=== PATIENT | female | born 1930 | race Caucasian/White ===

== ENCOUNTER → 2017-03-20 | Outpatient (CLI) | payer MEDICARE, BC | END | disposition home or self-care (01) | LOC: MAMMO 11:21 | PROVIDERS: ATTEND Specialist | DX: Z12.31 Encounter for screening mammogram for malignant neoplasm of breast (principal) | CPT/HCPCS: G0202 ==

== ENCOUNTER → 2019-11-20 | Outpatient (CLI) | payer MEDICARE, BC | END | disposition home or self-care (01) | LOC: RAD 12:49 | PROVIDERS: ATTEND Specialist | DX: J98.11 Atelectasis (principal); I51.7 Cardiomegaly; M85.88 Other specified disorders of bone density and structure, other site | CPT/HCPCS: 71046 ==

== ENCOUNTER 2019-11-28 11:29 | Inpatient (IN) | payer MEDICARE, BC ==
[~2019-11-28] VITALS: Ht 162.6 cm; Wt 51.7 kg
[2019-11-28] MEDS ORDERED: SODIUM CHLORIDE 0.9% 1,000 ML IV ONE (11:44)
[2019-11-28 12:25] LABS: BASOPHILS % 0.5 % (0.0-2.0); HEMATOCRIT. 40.7 % (36.0-48.0); HEMOGLOBIN. 13.9 g/dL (12.0-16.0); LYMPHOCYTES % 7.9 % (20.0-50.0); MEAN CORPUSCULAR HEMOGLOBIN 30.4 pg (28.0-32.0); MEAN CORPUSCULAR VOLUME 88.7 fL (81.0-99.0); MEAN PLATELET VOLUME 8.9 fl (7.4-10.4); MONOCYTES % 8.3 % (2.0-8.0); NEUTROPHILS % 83.3 % (40.0-76.0); PLATELET 131 x1000/uL (130-400); RED BLOOD CELL COUNT 4.59 mill/uL (4.2-5.4); RED CELL DISTRIBUTION WIDTH 15.5 % (11.6-14.6)
[2019-11-28 12:31] LABS: CHLORIDE 98 mEq/L (98-107)
[2019-11-28] MEDS ORDERED: ONDANSETRON HCL 4MG/2ML INJ IV STA (12:56)
[2019-11-28] MEDS ORDERED: MORPHINE SULFATE 4 MG/ML CPJ (NOT FOR IM USE) IV STA (12:56)
[2019-11-28] MEDS ORDERED: GUAIFENESIN/CODEINE 100-10MG/5ML UDC PO ONE (13:00)
[2019-11-28] MEDS: SODIUM CHLORIDE 0.9% 1,000 ML IV SCH (16:02)
[2019-11-28] MEDS ORDERED: DOCUSATE SODIUM 100MG CAPSULE PO PRN (16:15)
[2019-11-28] MEDS ORDERED: GUAIFENESIN 200MG/10ML SUGAR FREE UDC PO PRN (16:15)
[2019-11-28] MEDS ORDERED: CLONIDINE 0.1MG TABLET PO PRN (16:15)
[2019-11-28] MEDS ORDERED: ACETAMINOPHEN 650MG SUPP PR PRN (16:15)
[2019-11-28] MEDS ORDERED: IPRATROPIUM/ALBUTEROL 0.5-3(2.5)MG/3ML NEB HHN PRN (16:15)
[2019-11-28] MEDS ORDERED: MAGNESIUM/ALUMINUM HYDROXIDE/SIMETHICONE 30ML UDC PO PRN (16:15)
[2019-11-28] MEDS ORDERED: DIPHENHYDRAMINE 50MG/ML VIAL IV PRN (16:15)
[2019-11-28] MEDS ORDERED: ONDANSETRON HCL 4MG/2ML INJ IV PRN (16:15)
[2019-11-28] MEDS ORDERED: MORPHINE SULFATE 2 MG/ML CPJ (NOT FOR IM USE) IV PRN (17:54)
[2019-11-28] MEDS ORDERED: ETOMIDATE 2MG/ML 10ML VIAL IV ONE (19:57)
[2019-11-28] MEDS ORDERED: SUCCINYLCHOLINE CHLORIDE 200MG/10ML IV ONE (19:57)
[2019-11-28] MEDS ORDERED: LORAZEPAM 2MG/ML CPJ IV ONE ×2 (20:00→21:30)
[2019-11-28] MEDS ORDERED: FENTANYL CITRATE/PF 500 MCG in SODIUM CHLORIDE 0.9% 40 ML IV PRN ×2 (20:00→20:30)
[2019-11-28] MEDS ORDERED: MIDAZOLAM HCL 50 MG in DEXTROSE 5% WATER 40 ML IV ONE ×2 (20:00→20:15)
[2019-11-28 21:07] LABS: BG BASE EXCESS 1.1 mmol/L (-2.0-2.0); BG CARBOXYHEMOGLOBIN 0.3 % (0.5-1.5); BG DEOXYHEMOGLOBIN 2.8 % (0.0-5.0); BG FRACTION INSPIRED OXYGEN 40; BG HCO3 ACT 22.5 mmol/L (22.0-26.0); BG METHEMOGLOBIN 0.3 % (0.0-1.5); BG OXYGEN SATURATION 97.2 % (92.0-98.5); BG OXYHEMOGLOBIN 96.6 % (94.0-97.0); BG PCO2 26.5 mmHg (35.0-45.0); BG PH 7.546 (7.350-7.450); BG SAMPLE SITE RIGHT RADIAL; BG TIDAL VOLUME(mL) 500 mL; BG TOTAL HEMOGLOBIN 12.4 g/dL (12.0-18.0); BG VENT MODE VENT - A/C; BG VENT RATE 14 set
[2019-11-28 22:51] VITALS: BP 155/70
[2019-11-28 23:00] VITALS: BP 139/44
[2019-11-28 23:15] VITALS: BP 140/72
[2019-11-28 23:30] VITALS: BP 129/70
[2019-11-28] MEDS ORDERED: NICARDIPINE 50 MG in SODIUM CHLORIDE 0.9% 230 ML IV PRN (23:30)
[2019-11-28 23:45] VITALS: BP 131/66
[2019-11-29] VITALS (95 sets, daily range): BP systolic 97–167; BP diastolic 49–82
[2019-11-29 01:21] LABS: CLARITY URINE CLEAR (CLEAR); COLOR URINE YELLOW (YELLOW); KETONES URINE TRACE (NEGATIVE); LEUKOCYTE ESTERASE URINE NEGATIVE (NEGATIVE); NITRITE URINE NEGATIVE (NEGATIVE); OCCULT BLOOD URINE NEGATIVE (NEGATIVE); PROTEIN URINE NEGATIVE (NEGATIVE); SPECIFIC GRAVITY URINE 1.009 (1.005-1.030); UROBILINOGEN URINE 0.2 E.U./dL (0.2-1.0)
[2019-11-29] MEDS ORDERED: FENTANYL CITRATE/PF 500 MCG in SODIUM CHLORIDE 0.9% 40 ML IV PRN (01:30)
[2019-11-29] MEDS: ENALAPRIL 1.25MG/ML VIAL 1ML IV PRN (02:41)
[2019-11-29] MEDS: MORPHINE SULFATE 2 MG/ML CPJ (NOT FOR IM USE) IV PRN (03:12)
[2019-11-29 05:50] LABS: HEMATOCRIT. 38.4 % (36.0-48.0); HEMOGLOBIN. 12.8 g/dL (12.0-16.0); MEAN CORPUSCULAR HEMOGLOBIN 30.2 pg (28.0-32.0); MEAN CORPUSCULAR VOLUME 90.7 fL (81.0-99.0); MEAN PLATELET VOLUME 9.1 fl (7.4-10.4); PLATELET 114 x1000/uL (130-400); RED BLOOD CELL COUNT 4.23 mill/uL (4.2-5.4); RED CELL DISTRIBUTION WIDTH 15.8 % (11.6-14.6)
[2019-11-29 05:55] LABS: CHLORIDE 106 mEq/L (98-107)
[2019-11-29 06:09] LABS: LDL CHOLESTEROL 81 mg/dL (5-100)
[2019-11-29 06:10] LABS: CREATINE KINASE 190 IU/L (26-192); HDL CHOLESTEROL 62 mg/dL (40-59)
[2019-11-29 06:13] LABS: T4 FREE 1.49 ng/dL (0.76-1.46)
[2019-11-29] MEDS: SODIUM CHLORIDE 0.9% 1,000 ML IV SCH (09:30)
[2019-11-29] MEDS: TRAMADOL 50MG TABLET PO PRN ×2 (10:13→17:48)
[2019-11-29] MEDS: AMLODIPINE 5MG TABLET PO SCH (10:13)
[2019-11-29] MEDS: PANTOPRAZOLE SODIUM 40 MG/VIAL IV SCH (10:14)
[2019-11-29 10:40] LABS: PLATELET ESTIMATE DECREASED
[2019-11-29] MEDS ORDERED: PROPOFOL 10MG/ML 100ML 100 ML IV PRN ×2 (13:45)
[2019-11-29] MEDS ORDERED: PIPERACILLIN/TAZOBACTAM 3.375 G in DEXT 5% WATER 100 ML IV SCH (13:45)
[2019-11-29] MEDS ORDERED: IPRATROPIUM/ALBUTEROL 0.5-3(2.5)MG/3ML NEB HHN PRN (13:45)
[2019-11-29 15:47] LABS: INR 1.7
[2019-11-29] MEDS: PIPERACILLIN/TAZOBACTAM 2.25 G in DEXTROSE 5% WATER 50 ML IV SCH ×3 (16:17→23:56)
[2019-11-29] MEDS: ACETAMINOPHEN 325MG TABLET PO PRN (17:48)
[2019-11-29] MEDS: IPRATROPIUM/ALBUTEROL 0.5-3(2.5)MG/3ML NEB HHN SCH (20:43)
[2019-11-30] VITALS (100 sets, daily range): BP systolic 102–167; BP diastolic 50–92
[2019-11-30] MEDS: TRAMADOL 50MG TABLET PO PRN (00:10)
[2019-11-30] MEDS: IPRATROPIUM/ALBUTEROL 0.5-3(2.5)MG/3ML NEB HHN SCH ×4 (01:18→20:47)
[2019-11-30] MEDS ORDERED: ZOLP10TA6 PO (03:10)
[2019-11-30] MEDS ORDERED: LOSA50TA41 PO (03:10)
[2019-11-30] MEDS ORDERED: TRAM50TA3 PO (03:10)
[2019-11-30] MEDS ORDERED: AMLO5TAB88 PO (03:10)
[2019-11-30] MEDS ORDERED: CETI10TA6 PO (03:10)
[2019-11-30] MEDS ORDERED: ATOR40TA70 MT (03:10)
[2019-11-30] MEDS: ENALAPRIL 1.25MG/ML VIAL 1ML IV PRN ×2 (03:19→18:22)
[2019-11-30] MEDS: SODIUM CHLORIDE 0.9% 1,000 ML IV SCH ×2 (03:30→19:00)
[2019-11-30 05:31] LABS: BASOPHILS % 0.3 % (0.0-2.0); EOSINOPHILS % 0.3 % (0.0-5.0); HEMOGLOBIN. 12.7 g/dL (12.0-16.0); LYMPHOCYTES % 21.1 % (20.0-50.0); MEAN CORPUSCULAR VOLUME 89.8 fL (81.0-99.0); MEAN PLATELET VOLUME 8.9 fl (7.4-10.4); NEUTROPHILS % 67.3 % (40.0-76.0); PLATELET 104 x1000/uL (130-400); RED BLOOD CELL COUNT 4.24 mill/uL (4.2-5.4); RED CELL DISTRIBUTION WIDTH 15.8 % (11.6-14.6)
[2019-11-30 05:51] LABS: CHLORIDE 105 mEq/L (98-107)
[2019-11-30] MEDS: MORPHINE SULFATE 2 MG/ML CPJ (NOT FOR IM USE) IV PRN ×2 (05:51→19:56)
[2019-11-30] MEDS: PIPERACILLIN/TAZOBACTAM 2.25 G in DEXTROSE 5% WATER 50 ML IV SCH ×2 (06:18→12:37)
[2019-11-30] MEDS: AMLODIPINE 5MG TABLET PO SCH (07:58)
[2019-11-30] MEDS: PANTOPRAZOLE SODIUM 40 MG/VIAL IV SCH (07:58)
[2019-11-30] MEDS ORDERED: GADOBENATE DIMEGLUMINE 529 MG/ML 10ML IV ONE (10:28)
[2019-11-30] MEDS ORDERED: KCL 10MEQ/50ML PREMIX 50 ML IV NR (12:30)
[2019-11-30] MEDS ORDERED: POTASSIUM CHLORIDE INJ 40 MEQ in DEXT 5% WATER 250 ML IV NR (13:00)
[2019-11-30] MEDS ORDERED: FUROSEMIDE 20MG/2ML VIAL IVP SCH (14:45)
[2019-11-30] MEDS ORDERED: ACETAMINOPHEN 650MG/20.3ML UDC NG PRN (15:15)
[2019-11-30 17:17] LABS: HEPATITIS B SURFACE ANTIGEN NEGATIVE
[2019-11-30] MEDS: PHYTONADIONE 10MG/ML AMP SUBCUT SCH (17:26)
[2019-11-30] MEDS: CEFTRIAXONE 1 G PREMIX 50 ML IV SCH (17:26)
[2019-11-30 17:47] LABS: HEPATITIS A AB IGM NEGATIVE (NEGATIVE)
[2019-11-30] MEDS ORDERED: NICARDIPINE 100 MG in SODIUM CHLORIDE 0.9% 60 ML IV PRN (20:30)
[2019-11-30] MEDS ORDERED: FUROSEMIDE 20MG/2ML VIAL IVP NR (23:45)
[2019-12-01] VITALS (72 sets, daily range): BP systolic 94–152; BP diastolic 32–72
[2019-12-01] MEDS: PROPOFOL 10MG/ML 100ML 100 ML IV PRN ×2 (00:50→13:40)
[2019-12-01] MEDS: IPRATROPIUM/ALBUTEROL 0.5-3(2.5)MG/3ML NEB HHN SCH ×4 (01:27→20:58)
[2019-12-01 05:43] LABS: BASOPHILS % 0.3 % (0.0-2.0); EOSINOPHILS % 0.6 % (0.0-5.0); HEMOGLOBIN. 10.8 g/dL (12.0-16.0); LYMPHOCYTES % 16.2 % (20.0-50.0); MEAN CORPUSCULAR HEMOGLOBIN 30.4 pg (28.0-32.0); MEAN PLATELET VOLUME 8.4 fl (7.4-10.4); NEUTROPHILS % 71.9 % (40.0-76.0); PLATELET 173 x1000/uL (130-400); RED BLOOD CELL COUNT 3.56 mill/uL (4.2-5.4); RED CELL DISTRIBUTION WIDTH 15.6 % (11.6-14.6)
[2019-12-01 05:47] LABS: PARTIAL THROMBOPLASTIN TIME 30.7 sec (23.4-31.0); PROTHROMBIN TIME 10.9 sec (9.6-11.0)
[2019-12-01 05:49] LABS: CHLORIDE 104 mEq/L (98-107)
[2019-12-01] MEDS ORDERED: LIDOCAINE HCL 1% 20ML VIAL (Pyxis) INJ ONE (07:08)
[2019-12-01] MEDS ORDERED: POTASSIUM CHLORIDE INJ 40 MEQ in DEXT 5% WATER 250 ML IV NR (08:00)
[2019-12-01] MEDS: AMLODIPINE 5MG TABLET PO SCH (08:07)
[2019-12-01] MEDS: PANTOPRAZOLE SODIUM 40 MG/VIAL IV SCH (08:18)
[2019-12-01] MEDS: PHYTONADIONE 10MG/ML AMP SUBCUT SCH (08:18)
[2019-12-01] MEDS: MORPHINE SULFATE 2 MG/ML CPJ (NOT FOR IM USE) IV PRN ×2 (08:50→13:30)
[2019-12-01] MEDS ORDERED: THROMBIN (BOVINE) 5000 UNITS/VIAL TOP ONE (08:51)
[2019-12-01] MEDS ORDERED: LIDOCAINE HCL/EPINEPHRINE 1%-EPI 1:100,000 20 ML VIAL ONE (08:52)
[2019-12-01] MEDS ORDERED: BACITRACIN 50,000 UNITS/VIAL ONE (08:52)
[2019-12-01] MEDS ORDERED: KCL 20MEQ/100ML PREMIX 100 ML IV NR ×3 (11:00→23:00)
[2019-12-01] MEDS ORDERED: FENTANYL CITRATE/PF 50MCG/ML 2ML VIAL ONE (11:33)
[2019-12-01] MEDS ORDERED: ROCURONIUM BROMIDE 10MG/ML VIAL 5ML IV ONE (11:34)
[2019-12-01] MEDS ORDERED: BACITRACIN 15GM TUBE TOP ONE (11:48)
[2019-12-01] MEDS ORDERED: PROPOFOL 200MG/20ML VIAL IV ONE (12:13)
[2019-12-01] MEDS ORDERED: LEVETIRACETAM 500 MG in SODIUM CHLORIDE 0.9% 100 ML IV SCH (12:45)
[2019-12-01] MEDS ORDERED: LEVETIRACETAM 500MG PREMIX 100 ML IV NR (12:45)
[2019-12-01] MEDS ORDERED: NICARDIPINE 100 MG in SODIUM CHLORIDE 0.9% 60 ML IV PRN (12:45)
[2019-12-01 12:49] LABS: CHLORIDE 106 mEq/L (98-107)
[2019-12-01] MEDS: DEXT 5%/LACTATED RINGERS 1,000 ML IV SCH (13:38)
[2019-12-01] MEDS ORDERED: CEFAZOLIN SODIUM 1000MG/VIAL IV SCH (14:00)
[2019-12-01] MEDS: CEFAZOLIN 1000MG PREMIX 50 ML IV SCH ×2 (14:57→21:28)
[2019-12-01] MEDS: CEFTRIAXONE 1 G PREMIX 50 ML IV SCH (16:00)
[2019-12-01] MEDS: LEVETIRACETAM 500MG PREMIX 100 ML IV SCH (20:39)
[2019-12-01] MEDS ORDERED: MAGNESIUM 2 G PREMIX 50 ML IV NR (23:00)
[2019-12-02] VITALS (87 sets, daily range): BP systolic 40–170; BP diastolic 0–118
[2019-12-02] MEDS: IPRATROPIUM/ALBUTEROL 0.5-3(2.5)MG/3ML NEB HHN SCH ×4 (03:41→20:04)
[2019-12-02 05:08] LABS: BASOPHILS % 0.3 % (0.0-2.0); EOSINOPHILS % 0.1 % (0.0-5.0); HEMATOCRIT. 36.1 % (36.0-48.0); HEMOGLOBIN. 12.5 g/dL (12.0-16.0); LYMPHOCYTES % 14.9 % (20.0-50.0); MEAN CORPUSCULAR HEMOGLOBIN 30.3 pg (28.0-32.0); MEAN CORPUSCULAR VOLUME 87.3 fL (81.0-99.0); MEAN PLATELET VOLUME 8.6 fl (7.4-10.4); NEUTROPHILS % 73.7 % (40.0-76.0); PLATELET 190 x1000/uL (130-400); RED BLOOD CELL COUNT 4.13 mill/uL (4.2-5.4); RED CELL DISTRIBUTION WIDTH 15.7 % (11.6-14.6)
[2019-12-02 05:10] LABS: CHLORIDE 107 mEq/L (98-107)
[2019-12-02] MEDS: CEFAZOLIN 1000MG PREMIX 50 ML IV SCH ×3 (06:46→23:14)
[2019-12-02] MEDS ORDERED: PROPOFOL 10MG/ML 100ML 100 ML IV PRN (07:00)
[2019-12-02] MEDS: DEXT 5%/LACTATED RINGERS 1,000 ML IV SCH (08:00)
[2019-12-02] MEDS: LEVETIRACETAM 500MG PREMIX 100 ML IV SCH ×2 (08:48→20:50)
[2019-12-02] MEDS: AMLODIPINE 5MG TABLET PO SCH (08:49)
[2019-12-02] MEDS: PANTOPRAZOLE SODIUM 40 MG/VIAL IV SCH (08:49)
[2019-12-02] MEDS: PHYTONADIONE 10MG/ML AMP SUBCUT SCH (08:49)
[2019-12-02] MEDS ORDERED: POTASSIUM CHLORIDE 20MEQ/PACKET PO NR (10:15)
[2019-12-02 10:51] LABS: BG CARBOXYHEMOGLOBIN 0.3 % (0.5-1.5); BG DEOXYHEMOGLOBIN 1.5 % (0.0-5.0); BG FRACTION INSPIRED OXYGEN 45; BG HCO3 ACT 24.4 mmol/L (22.0-26.0); BG METHEMOGLOBIN 0.2 % (0.0-1.5); BG OXYGEN SATURATION 98.5 % (92.0-98.5); BG PCO2 31.2 mmHg (35.0-45.0); BG PH 7.511 (7.350-7.450); BG PO2 133.6 mmHg (75.0-100.0); BG PRESSURE SUPPORT 8; BG SAMPLE SITE RIGHT RADIAL; BG TOTAL HEMOGLOBIN 12.1 g/dL (12.0-18.0); BG VENT MODE VENT - CPAP
[2019-12-02] MEDS: CEFTRIAXONE 1 G PREMIX 50 ML IV SCH (16:34)
[2019-12-02] MEDS ORDERED: POTASSIUM CHLORIDE 20MEQ/PACKET NG NR (21:00)
[2019-12-03] VITALS (47 sets, daily range): BP systolic 102–174; BP diastolic 24–138
[2019-12-03] MEDS: IPRATROPIUM/ALBUTEROL 0.5-3(2.5)MG/3ML NEB HHN SCH ×4 (00:55→20:52)
[2019-12-03 05:52] LABS: BASOPHILS % 0.4 % (0.0-2.0); EOSINOPHILS % 0.6 % (0.0-5.0); HEMATOCRIT. 36.1 % (36.0-48.0); HEMOGLOBIN. 12.4 g/dL (12.0-16.0); LYMPHOCYTES % 18.1 % (20.0-50.0); MEAN CORPUSCULAR HEMOGLOBIN 29.9 pg (28.0-32.0); MEAN CORPUSCULAR VOLUME 87.1 fL (81.0-99.0); MEAN PLATELET VOLUME 8.9 fl (7.4-10.4); MONOCYTES % 11.7 % (2.0-8.0); NEUTROPHILS % 69.2 % (40.0-76.0); PLATELET 187 x1000/uL (130-400); RED BLOOD CELL COUNT 4.15 mill/uL (4.2-5.4); RED CELL DISTRIBUTION WIDTH 15.8 % (11.6-14.6)
[2019-12-03] MEDS: DEXT 5%/LACTATED RINGERS 1,000 ML IV SCH ×2 (06:17→14:36)
[2019-12-03] MEDS: MORPHINE SULFATE 4 MG/ML CPJ (NOT FOR IM USE) IV PRN ×2 (06:18→20:34)
[2019-12-03] MEDS: CEFAZOLIN 1000MG PREMIX 50 ML IV SCH ×2 (06:20→13:45)
[2019-12-03] MEDS: PANTOPRAZOLE SODIUM 40 MG/VIAL IV SCH (08:27)
[2019-12-03] MEDS: LEVETIRACETAM 500MG PREMIX 100 ML IV SCH ×2 (08:27→20:34)
[2019-12-03] MEDS: AMLODIPINE 5MG TABLET PO SCH (08:28)
[2019-12-03 08:32] LABS: CHLORIDE 107 mEq/L (98-107)
[2019-12-03] MEDS ORDERED: POTASSIUM CHLORIDE INJ 40 MEQ in DEXT 5% WATER 250 ML IV NR (11:00)
[2019-12-03] MEDS: POTASSIUM CHLORIDE 20MEQ/PACKET NG SCH ×2 (12:27→14:36)
[2019-12-03] MEDS: CEFTRIAXONE 1 G PREMIX 50 ML IV SCH (16:55)
[2019-12-04] VITALS (12 sets, daily range): BP systolic 106–158; BP diastolic 59–96
[2019-12-04] MEDS: IPRATROPIUM/ALBUTEROL 0.5-3(2.5)MG/3ML NEB HHN SCH ×4 (02:25→21:07)
[2019-12-04 06:40] LABS: BASOPHILS % 0.7 % (0.0-2.0); EOSINOPHILS % 3.2 % (0.0-5.0); HEMATOCRIT. 33.9 % (36.0-48.0); HEMOGLOBIN. 11.7 g/dL (12.0-16.0); LYMPHOCYTES % 24.7 % (20.0-50.0); MEAN CORPUSCULAR HEMOGLOBIN 30.2 pg (28.0-32.0); MEAN CORPUSCULAR VOLUME 87.8 fL (81.0-99.0); MEAN PLATELET VOLUME 8.9 fl (7.4-10.4); MONOCYTES % 14.3 % (2.0-8.0); NEUTROPHILS % 57.1 % (40.0-76.0); PLATELET 169 x1000/uL (130-400); RED BLOOD CELL COUNT 3.86 mill/uL (4.2-5.4); RED CELL DISTRIBUTION WIDTH 15.3 % (11.6-14.6)
[2019-12-04 07:08] LABS: CHLORIDE 111 mEq/L (98-107)
[2019-12-04] MEDS: PANTOPRAZOLE SODIUM 40 MG/VIAL IV SCH (08:04)
[2019-12-04] MEDS: AMLODIPINE 5MG TABLET PO SCH (08:04)
[2019-12-04] MEDS: LEVETIRACETAM 500MG PREMIX 100 ML IV SCH ×2 (08:04→20:45)
[2019-12-04] MEDS ORDERED: ENALAPRIL 1.25MG/ML VIAL 1ML IV PRN (08:45)
[2019-12-04] MEDS: MAGNESIUM OXIDE 400MG TABLET PO SCH (09:10)
[2019-12-04] MEDS ORDERED: MAGNESIUM 2 G PREMIX 50 ML IV SCH (10:00)
[2019-12-04] MEDS: POTASSIUM CHLORIDE 20MEQ/PACKET PO SCH ×2 (11:30→12:59)
[2019-12-04] MEDS: CEFTRIAXONE 1 G PREMIX 50 ML IV SCH (16:10)
[2019-12-04] MEDS: KCL 20MEQ/100ML PREMIX 100 ML IV SCH ×2 (16:49→18:58)
[2019-12-04] MEDS: MORPHINE SULFATE 4 MG/ML CPJ (NOT FOR IM USE) IV PRN (22:21)
[2019-12-05] VITALS (13 sets, daily range): BP systolic 106–143; BP diastolic 59–74
[2019-12-05] MEDS: IPRATROPIUM/ALBUTEROL 0.5-3(2.5)MG/3ML NEB HHN SCH ×4 (03:22→19:50)
[2019-12-05 07:16] LABS: BASOPHILS % 0.7 % (0.0-2.0); HEMATOCRIT. 34.7 % (36.0-48.0); HEMOGLOBIN. 11.7 g/dL (12.0-16.0); LYMPHOCYTES % 20.5 % (20.0-50.0); MEAN CORPUSCULAR HEMOGLOBIN 29.7 pg (28.0-32.0); MONOCYTES % 10.4 % (2.0-8.0); NEUTROPHILS % 67.4 % (40.0-76.0); PLATELET 159 x1000/uL (130-400); RED BLOOD CELL COUNT 3.94 mill/uL (4.2-5.4); RED CELL DISTRIBUTION WIDTH 15.2 % (11.6-14.6)
[2019-12-05 08:33] LABS: CHLORIDE 111 mEq/L (98-107)
[2019-12-05] MEDS: LEVETIRACETAM 500MG PREMIX 100 ML IV SCH ×2 (09:10→20:33)
[2019-12-05] MEDS: PANTOPRAZOLE SODIUM 40 MG/VIAL IV SCH (09:10)
[2019-12-05] MEDS: MAGNESIUM OXIDE 400MG TABLET PO SCH (09:11)
[2019-12-05] MEDS: AMLODIPINE 5MG TABLET PO SCH (09:11)
[2019-12-05] MEDS: DEXT 5%/LACTATED RINGERS 1,000 ML IV SCH (09:12)
[2019-12-05] MEDS: CEFTRIAXONE 1 G PREMIX 50 ML IV SCH (16:09)
[2019-12-05] MEDS: ACETAMINOPHEN 325MG TABLET PO PRN (16:15)
[2019-12-06] VITALS (13 sets, daily range): BP systolic 114–157; BP diastolic 50–76
[2019-12-06] MEDS: IPRATROPIUM/ALBUTEROL 0.5-3(2.5)MG/3ML NEB HHN SCH ×3 (01:38→15:17)
[2019-12-06 05:45] LABS: BASOPHILS % 0.8 % (0.0-2.0); EOSINOPHILS % 1.3 % (0.0-5.0); HEMATOCRIT. 34.3 % (36.0-48.0); HEMOGLOBIN. 11.8 g/dL (12.0-16.0); MEAN CORPUSCULAR HEMOGLOBIN 30.1 pg (28.0-32.0); MEAN CORPUSCULAR VOLUME 87.7 fL (81.0-99.0); MONOCYTES % 10.6 % (2.0-8.0); NEUTROPHILS % 70.3 % (40.0-76.0); PLATELET 189 x1000/uL (130-400); RED BLOOD CELL COUNT 3.91 mill/uL (4.2-5.4); RED CELL DISTRIBUTION WIDTH 15.6 % (11.6-14.6)
[2019-12-06 06:14] LABS: CHLORIDE 110 mEq/L (98-107)
[2019-12-06] MEDS: PANTOPRAZOLE SODIUM 40 MG/VIAL IV SCH (08:53)
[2019-12-06] MEDS: LEVETIRACETAM 500MG PREMIX 100 ML IV SCH (08:53)
[2019-12-06] MEDS: AMLODIPINE 5MG TABLET PO SCH (08:53)
[2019-12-06] MEDS: MAGNESIUM OXIDE 400MG TABLET PO SCH (08:53)
[2019-12-06] MEDS ORDERED: LOSARTAN POTASSIUM 50 MG TABLET PO SCH (12:45)
[2019-12-06] MEDS: ACETAMINOPHEN 325MG TABLET PO PRN (18:44)
[2019-12-06] MEDS ORDERED: ATORVASTATIN CALCIUM 40MG TABLET PO SCH (21:00)
[2019-12-07] MEDS ORDERED: PANTOPRAZOLE 40MG DR TABLET PO SCH (07:30)
== END 2019-12-06 20:25 | DRG 981 ==
LOC: ER 11:29 → MICUNO 14:22 → EDBEDREQTM 21:05 → EDBEDREQSVC 21:05 → 5EST 12-03 22:35
PROVIDERS: ADMIT Family Medicine Adult Medicine; ATTEND Family Medicine Adult Medicine
PROC: 5A1945Z Respiratory Ventilation, 24-96 Consecutive Hours (ICD-10-PCS; principal; 2019-11-28)
PROC: 0BH17EZ Insertion of Endotracheal Airway into Trachea, Via Natural or Artificial Opening (ICD-10-PCS; 2019-11-28)
PROC: 009400Z Drainage of Intracranial Subdural Space with Drainage Device, Open Approach (ICD-10-PCS; 2019-11-28)
PROC: 30233R1 Transfusion of Nonautologous Platelets into Peripheral Vein, Percutaneous Approach (ICD-10-PCS; 2019-11-30)
PROC: 00H032Z Insertion of Monitoring Device into Brain, Percutaneous Approach (ICD-10-PCS; 2019-12-01)
PROC: 00U207Z Supplement Dura Mater with Autologous Tissue Substitute, Open Approach (ICD-10-PCS; 2019-12-01)
PROC: 4A103BD Monitoring of Intracranial Pressure, Percutaneous Approach (ICD-10-PCS; 2019-12-01)
PROC: 02H633Z Insertion of Infusion Device into Right Atrium, Percutaneous Approach (ICD-10-PCS; 2019-12-01)
PROC: B548ZZA Ultrasonography of Superior Vena Cava, Guidance (ICD-10-PCS; 2019-12-01)
PROC: 30233K1 Transfusion of Nonautologous Frozen Plasma into Peripheral Vein, Percutaneous Approach (ICD-10-PCS; 2019-12-01)
DX: J96.00 Acute respiratory failure, unspecified whether with hypoxia or hypercapnia (principal); J69.0 Pneumonitis due to inhalation of food and vomit; S06.5X9A Traumatic subdural hemorrhage with loss of consciousness of unspecified duration, initial encounter; G82.50 Quadriplegia, unspecified; G96.0 Cerebrospinal fluid leak; D62 Acute posthemorrhagic anemia; J98.11 Atelectasis; R47.01 Aphasia; E87.1 Hypo-osmolality and hyponatremia; E44.0 Moderate protein-calorie malnutrition; G81.94 Hemiplegia, unspecified affecting left nondominant side; J96.01 Acute respiratory failure with hypoxia; D18.1 Lymphangioma, any site; I10 Essential (primary) hypertension; W19.XXXA Unspecified fall, initial encounter; E78.5 Hyperlipidemia, unspecified; R26.89 Other abnormalities of gait and mobility; E56.1 Deficiency of vitamin K; E78.00 Pure hypercholesterolemia, unspecified; E83.42 Hypomagnesemia; E87.6 Hypokalemia; I35.8 Other nonrheumatic aortic valve disorders; I44.0 Atrioventricular block, first degree; I45.10 Unspecified right bundle-branch block; I49.1 Atrial premature depolarization; J01.00 Acute maxillary sinusitis, unspecified; J01.30 Acute sphenoidal sinusitis, unspecified; J44.9 Chronic obstructive pulmonary disease, unspecified; G89.29 Other chronic pain; M54.5 Low back pain; M19.90 Unspecified osteoarthritis, unspecified site; R47.1 Dysarthria and anarthria; D69.6 Thrombocytopenia, unspecified; M40.204 Unspecified kyphosis, thoracic region; M48.02 Spinal stenosis, cervical region; M81.0 Age-related osteoporosis without current pathological fracture; R13.10 Dysphagia, unspecified; Y93.89 Activity, other specified; Y92.098 Other place in other non-institutional residence as the place of occurrence of the external cause; Y99.8 Other external cause status; Z79.01 Long term (current) use of anticoagulants; Z86.73 Personal history of transient ischemic attack (TIA), and cerebral infarction without residual deficits; Z98.1 Arthrodesis status
CPT/HCPCS: 36415; 36600; 70553; 71045; 72141; 76700; 76937; 80048; 80053; 80061; 81003; 82375; 82550; 82805; 83735; 84100; 84439; 84443; 84478; 84484; 85025; 85384; 86705; 86709; 86803; 86850; 86900; 86927; 86945; 87070; 87340; 87804; 92610; 93005; 93306; 93970; 94002; 94003; 94640; 96374; 97162; 97167; 99285; A9577; C1713; C1725; C9113; J0330; J0690; J0696; J1940; J1953; J2060; J2250; J2270; J2405; J2543; J2704; J3010; J3430; J3475; J3480; J3490; J7030; J7050; J7060; J7121; P9017; P9034

== ENCOUNTER 2019-12-06 20:30 | Inpatient (IN) | payer MEDICARE, BC ==
[~2019-12-06] VITALS: Ht 167.6 cm; Wt 51.7 kg
[~2019-12-06 20:30] MED LIST: AMLO5TAB88 PO; ATOR40TA70 MT; CETI10TA6 PO; LOSA50TA41 PO; TRAM50TA3 PO
[2019-12-06 21:00] VITALS: BP 109/51
[2019-12-06] MEDS ORDERED: LEVETIRACETAM 500 MG in SODIUM CHLORIDE 0.9% 100 ML IV SCH (21:30)
[2019-12-06] MEDS ORDERED: DIPHENHYDRAMINE 50MG/ML VIAL IM PRN (21:30)
[2019-12-06] MEDS ORDERED: ONDANSETRON HCL 4MG/2ML INJ IV PRN (21:30)
[2019-12-06] MEDS ORDERED: DOCUSATE SODIUM 100MG CAPSULE PO PRN (21:30)
[2019-12-06] MEDS ORDERED: IPRATROPIUM/ALBUTEROL 0.5-3(2.5)MG/3ML NEB HHN PRN (21:30)
[2019-12-06] MEDS ORDERED: CLONIDINE 0.1MG TABLET PO PRN (21:30)
[2019-12-06] MEDS ORDERED: MAGNESIUM/ALUMINUM HYDROXIDE/SIMETHICONE 30ML UDC PO PRN (21:30)
[2019-12-06] MEDS ORDERED: ACETAMINOPHEN 650MG SUPP PR PRN (21:30)
[2019-12-06] MEDS: ATORVASTATIN CALCIUM 40MG TABLET PO SCH (22:12)
[2019-12-06] MEDS ORDERED: LEVETIRACETAM 500MG PREMIX 100 ML IV NR (23:00)
[2019-12-07] MEDS: IPRATROPIUM/ALBUTEROL 0.5-3(2.5)MG/3ML NEB HHN SCH ×3 (01:32→20:11)
[2019-12-07] MEDS: GUAIFENESIN 200MG/10ML SUGAR FREE UDC PO PRN (03:23)
[2019-12-07] MEDS: ACETAMINOPHEN 325MG TABLET PO PRN ×2 (03:24→15:16)
[2019-12-07 08:17] VITALS: BP 158/83
[2019-12-07] MEDS: MAGNESIUM OXIDE 400MG TABLET PO SCH (08:39)
[2019-12-07] MEDS: AMLODIPINE 5MG TABLET PO SCH (08:39)
[2019-12-07] MEDS: LOSARTAN POTASSIUM 50 MG TABLET PO SCH (08:39)
[2019-12-07] MEDS: PANTOPRAZOLE SODIUM 40 MG/VIAL IV SCH (08:39)
[2019-12-07 08:48] VITALS: BP 158/83
[2019-12-07] MEDS ORDERED: LEVETIRACETAM 500MG PREMIX 100 ML IV SCH (09:00)
[2019-12-07 10:06] LABS: BASOPHILS % 0.6 % (0.0-2.0); EOSINOPHILS % 1.8 % (0.0-5.0); HEMATOCRIT. 35.2 % (36.0-48.0); LYMPHOCYTES % 19.8 % (20.0-50.0); MEAN CORPUSCULAR HEMOGLOBIN 29.9 pg (28.0-32.0); MEAN CORPUSCULAR VOLUME 87.8 fL (81.0-99.0); MEAN PLATELET VOLUME 9.1 fl (7.4-10.4); MONOCYTES % 10.2 % (2.0-8.0); NEUTROPHILS % 67.6 % (40.0-76.0); PLATELET 219 x1000/uL (130-400); RED BLOOD CELL COUNT 4.01 mill/uL (4.2-5.4); RED CELL DISTRIBUTION WIDTH 15.5 % (11.6-14.6)
[2019-12-07 10:09] LABS: CHLORIDE 109 mEq/L (98-107)
[2019-12-07] MEDS ORDERED: BARIUM SULFATE 176 GM SUSP.RECON ONE (10:30)
[2019-12-07] MEDS ORDERED: POTASSIUM CHLORIDE 20MEQ/PACKET PO NR (11:00)
[2019-12-07] MEDS ORDERED: MAGNESIUM 2 G PREMIX 50 ML IV ONE (12:00)
[2019-12-07 20:00] VITALS: BP 131/69
[2019-12-07] MEDS: ATORVASTATIN CALCIUM 40MG TABLET PO SCH (21:16)
[2019-12-07] MEDS: LEVETIRACETAM 500MG TABLET PO SCH (21:16)
[2019-12-08] MEDS: IPRATROPIUM/ALBUTEROL 0.5-3(2.5)MG/3ML NEB HHN SCH ×4 (01:10→19:53)
[2019-12-08 07:49] LABS: BASOPHILS % 1.1 % (0.0-2.0); EOSINOPHILS % 1.9 % (0.0-5.0); HEMATOCRIT. 33.3 % (36.0-48.0); HEMOGLOBIN. 11.4 g/dL (12.0-16.0); LYMPHOCYTES % 19.8 % (20.0-50.0); MEAN CORPUSCULAR VOLUME 87.6 fL (81.0-99.0); MEAN PLATELET VOLUME 8.7 fl (7.4-10.4); MONOCYTES % 9.1 % (2.0-8.0); NEUTROPHILS % 68.1 % (40.0-76.0); PLATELET 226 x1000/uL (130-400); RED CELL DISTRIBUTION WIDTH 15.2 % (11.6-14.6)
[2019-12-08 08:34] VITALS: BP 139/64
[2019-12-08] MEDS: PANTOPRAZOLE SODIUM 40 MG/VIAL IV SCH (08:36)
[2019-12-08] MEDS: LOSARTAN POTASSIUM 50 MG TABLET PO SCH (08:36)
[2019-12-08] MEDS: AMLODIPINE 5MG TABLET PO SCH (08:36)
[2019-12-08] MEDS: LEVETIRACETAM 500MG TABLET PO SCH ×2 (08:36→20:09)
[2019-12-08] MEDS: MAGNESIUM OXIDE 400MG TABLET PO SCH (08:36)
[2019-12-08 12:06] LABS: CHLORIDE 109 mEq/L (98-107)
[2019-12-08 20:00] VITALS: BP 155/71
[2019-12-08] MEDS: ATORVASTATIN CALCIUM 40MG TABLET PO SCH (20:09)
[2019-12-09] MEDS: IPRATROPIUM/ALBUTEROL 0.5-3(2.5)MG/3ML NEB HHN SCH ×4 (00:31→19:50)
[2019-12-09 07:03] LABS: CHLORIDE 111 mEq/L (98-107)
[2019-12-09 07:05] LABS: BASOPHILS % 1.1 % (0.0-2.0); EOSINOPHILS % 1.8 % (0.0-5.0); HEMATOCRIT. 34.6 % (36.0-48.0); HEMOGLOBIN. 11.9 g/dL (12.0-16.0); LYMPHOCYTES % 21.9 % (20.0-50.0); MEAN CORPUSCULAR HEMOGLOBIN 30.3 pg (28.0-32.0); MEAN CORPUSCULAR VOLUME 88.3 fL (81.0-99.0); MEAN PLATELET VOLUME 8.6 fl (7.4-10.4); NEUTROPHILS % 65.2 % (40.0-76.0); PLATELET 227 x1000/uL (130-400); RED BLOOD CELL COUNT 3.92 mill/uL (4.2-5.4); RED CELL DISTRIBUTION WIDTH 15.6 % (11.6-14.6)
[2019-12-09 07:15] LABS: TOTAL IRON BINDING CAPACITY 242 ug/dL (250-450)
[2019-12-09 07:19] LABS: FOLIC ACID (FOLATE) SERUM 5.9 ng/mL (>5.38)
[2019-12-09 08:30] VITALS: BP 164/65
[2019-12-09] MEDS: AMLODIPINE 5MG TABLET PO SCH ×2 (09:00→20:16)
[2019-12-09] MEDS: PANTOPRAZOLE SODIUM 40 MG/VIAL IV SCH (09:00)
[2019-12-09] MEDS: MAGNESIUM OXIDE 400MG TABLET PO SCH (09:00)
[2019-12-09] MEDS: LEVETIRACETAM 500MG TABLET PO SCH ×2 (09:00→20:16)
[2019-12-09] MEDS: LOSARTAN POTASSIUM 50 MG TABLET PO SCH (09:00)
[2019-12-09] MEDS: FERROUS SULFATE 325MG TABLET PO SCH (17:00)
[2019-12-09 20:00] VITALS: BP 145/64
[2019-12-09] MEDS: ATORVASTATIN CALCIUM 40MG TABLET PO SCH (20:16)
[2019-12-10] MEDS: IPRATROPIUM/ALBUTEROL 0.5-3(2.5)MG/3ML NEB HHN SCH ×4 (02:46→21:55)
[2019-12-10 08:00] VITALS: BP 140/63
[2019-12-10] MEDS: MAGNESIUM OXIDE 400MG TABLET PO SCH (08:52)
[2019-12-10] MEDS: PANTOPRAZOLE SODIUM 40 MG/VIAL IV SCH (08:52)
[2019-12-10] MEDS: AMLODIPINE 5MG TABLET PO SCH ×2 (08:54→21:41)
[2019-12-10] MEDS: LEVETIRACETAM 500MG TABLET PO SCH ×2 (08:54→21:41)
[2019-12-10] MEDS: FERROUS SULFATE 325MG TABLET PO SCH ×3 (08:55→21:41)
[2019-12-10] MEDS: LOSARTAN POTASSIUM 50 MG TABLET PO SCH (08:55)
[2019-12-10 16:42] LABS: BASOPHILS % 0.8 % (0.0-2.0); EOSINOPHILS % 0.4 % (0.0-5.0); HEMOGLOBIN. 12.3 g/dL (12.0-16.0); LYMPHOCYTES % 16.5 % (20.0-50.0); MEAN CORPUSCULAR HEMOGLOBIN 30.2 pg (28.0-32.0); MEAN CORPUSCULAR VOLUME 88.1 fL (81.0-99.0); MEAN PLATELET VOLUME 8.8 fl (7.4-10.4); MONOCYTES % 8.4 % (2.0-8.0); NEUTROPHILS % 73.9 % (40.0-76.0); PLATELET 227 x1000/uL (130-400); RED BLOOD CELL COUNT 4.09 mill/uL (4.2-5.4); RED CELL DISTRIBUTION WIDTH 15.4 % (11.6-14.6)
[2019-12-10 16:46] LABS: CHLORIDE 107 mEq/L (98-107)
[2019-12-10] MEDS ORDERED: POTASSIUM CHLORIDE 20MEQ/PACKET PO NR (16:57)
[2019-12-10] MEDS ORDERED: POTASSIUM CHLORIDE 20MEQ/PACKET PO SCH (17:15)
[2019-12-10] MEDS ORDERED: POTASSIUM CHLORIDE INJ 40 MEQ in DEXT 5% WATER 500 ML IV ONE (18:15)
[2019-12-10 20:00] VITALS: BP 150/59
[2019-12-10] MEDS: ATORVASTATIN CALCIUM 40MG TABLET PO SCH (21:41)
[2019-12-10] MEDS: GUAIFENESIN 600MG ER TABLET PO SCH (21:41)
[2019-12-11] MEDS: IPRATROPIUM/ALBUTEROL 0.5-3(2.5)MG/3ML NEB HHN SCH ×2 (02:46→20:01)
[2019-12-11] MEDS ORDERED: POTASSIUM CHLORIDE INJ 40 MEQ in DEXT 5% WATER 500 ML IV ONE (03:00)
[2019-12-11] MEDS: ACETAMINOPHEN 325MG TABLET PO PRN (05:40)
[2019-12-11 08:00] VITALS: BP 121/65
[2019-12-11] MEDS: PANTOPRAZOLE SODIUM 40 MG/VIAL IV SCH (09:11)
[2019-12-11] MEDS: LEVETIRACETAM 500MG TABLET PO SCH ×2 (09:12→20:24)
[2019-12-11] MEDS: AMLODIPINE 5MG TABLET PO SCH ×2 (09:12→20:25)
[2019-12-11] MEDS: FERROUS SULFATE 325MG TABLET PO SCH ×3 (09:12→17:49)
[2019-12-11] MEDS: MAGNESIUM OXIDE 400MG TABLET PO SCH (09:12)
[2019-12-11] MEDS: LOSARTAN POTASSIUM 50 MG TABLET PO SCH (09:12)
[2019-12-11] MEDS: GUAIFENESIN 600MG ER TABLET PO SCH ×2 (09:12→20:24)
[2019-12-11 15:42] LABS: BASOPHILS % 0.6 % (0.0-2.0); EOSINOPHILS % 0.9 % (0.0-5.0); HEMATOCRIT. 34.4 % (36.0-48.0); HEMOGLOBIN. 11.6 g/dL (12.0-16.0); LYMPHOCYTES % 15.7 % (20.0-50.0); MEAN CORPUSCULAR HEMOGLOBIN 30.3 pg (28.0-32.0); MEAN CORPUSCULAR VOLUME 89.4 fL (81.0-99.0); MEAN PLATELET VOLUME 8.6 fl (7.4-10.4); MONOCYTES % 7.8 % (2.0-8.0); PLATELET 188 x1000/uL (130-400); RED BLOOD CELL COUNT 3.85 mill/uL (4.2-5.4); RED CELL DISTRIBUTION WIDTH 15.2 % (11.6-14.6)
[2019-12-11 15:57] LABS: CHLORIDE 107 mEq/L (98-107)
[2019-12-11] MEDS ORDERED: BISACODYL 5MG TABLET PO PRN ×2 (19:15→19:30)
[2019-12-11 20:00] VITALS: BP 131/52
[2019-12-11] MEDS: ATORVASTATIN CALCIUM 40MG TABLET PO SCH (20:24)
[2019-12-12] MEDS: IPRATROPIUM/ALBUTEROL 0.5-3(2.5)MG/3ML NEB HHN SCH ×3 (02:12→12:20)
[2019-12-12] MEDS: ACETAMINOPHEN 325MG TABLET PO PRN (03:40)
[2019-12-12 07:40] LABS: BASOPHILS % 1.2 % (0.0-2.0); EOSINOPHILS % 2.5 % (0.0-5.0); HEMATOCRIT. 31.1 % (36.0-48.0); HEMOGLOBIN. 10.9 g/dL (12.0-16.0); LYMPHOCYTES % 17.4 % (20.0-50.0); MEAN CORPUSCULAR VOLUME 88.4 fL (81.0-99.0); MEAN PLATELET VOLUME 8.8 fl (7.4-10.4); NEUTROPHILS % 70.9 % (40.0-76.0); PLATELET 214 x1000/uL (130-400); RED BLOOD CELL COUNT 3.51 mill/uL (4.2-5.4); RED CELL DISTRIBUTION WIDTH 15.6 % (11.6-14.6)
[2019-12-12 08:00] VITALS: BP 143/64
[2019-12-12 08:16] LABS: CHLORIDE 109 mEq/L (98-107)
[2019-12-12] MEDS: MAGNESIUM OXIDE 400MG TABLET PO SCH (09:27)
[2019-12-12] MEDS: PANTOPRAZOLE SODIUM 40 MG/VIAL IV SCH (09:27)
[2019-12-12] MEDS: GUAIFENESIN 600MG ER TABLET PO SCH ×2 (09:27→20:40)
[2019-12-12] MEDS: AMLODIPINE 5MG TABLET PO SCH ×2 (09:27→20:41)
[2019-12-12] MEDS: LEVETIRACETAM 500MG TABLET PO SCH ×2 (09:27→20:40)
[2019-12-12] MEDS: LOSARTAN POTASSIUM 50 MG TABLET PO SCH (09:27)
[2019-12-12] MEDS: FERROUS SULFATE 325MG TABLET PO SCH ×3 (09:27→16:30)
[2019-12-12 20:00] VITALS: BP 120/62
[2019-12-12] MEDS: ATORVASTATIN CALCIUM 40MG TABLET PO SCH (20:40)
[2019-12-13] MEDS: IPRATROPIUM/ALBUTEROL 0.5-3(2.5)MG/3ML NEB HHN SCH ×4 (01:50→21:49)
[2019-12-13 04:08] LABS: 25-HYDROXY VITAMIN D3 38 ng/mL (.)
[2019-12-13 07:02] LABS: CHLORIDE 110 mEq/L (98-107)
[2019-12-13 07:08] LABS: BASOPHILS % 1.2 % (0.0-2.0); EOSINOPHILS % 2.5 % (0.0-5.0); HEMATOCRIT. 32.3 % (36.0-48.0); HEMOGLOBIN. 11.2 g/dL (12.0-16.0); LYMPHOCYTES % 18.3 % (20.0-50.0); MEAN CORPUSCULAR HEMOGLOBIN 30.6 pg (28.0-32.0); MEAN CORPUSCULAR VOLUME 87.8 fL (81.0-99.0); MEAN PLATELET VOLUME 8.9 fl (7.4-10.4); PLATELET 238 x1000/uL (130-400); RED BLOOD CELL COUNT 3.68 mill/uL (4.2-5.4); RED CELL DISTRIBUTION WIDTH 15.6 % (11.6-14.6)
[2019-12-13 08:31] VITALS: BP 137/76
[2019-12-13] MEDS: FERROUS SULFATE 325MG TABLET PO SCH ×3 (08:44→16:51)
[2019-12-13] MEDS: AMLODIPINE 5MG TABLET PO SCH ×2 (08:44→21:30)
[2019-12-13] MEDS: LEVETIRACETAM 500MG TABLET PO SCH ×2 (08:44→21:30)
[2019-12-13] MEDS: LOSARTAN POTASSIUM 50 MG TABLET PO SCH (08:44)
[2019-12-13] MEDS: PANTOPRAZOLE SODIUM 40 MG/VIAL IV SCH (08:44)
[2019-12-13] MEDS: GUAIFENESIN 600MG ER TABLET PO SCH ×2 (08:44→21:30)
[2019-12-13] MEDS: MAGNESIUM OXIDE 400MG TABLET PO SCH (08:44)
[2019-12-13] MEDS ORDERED: LACTULOSE 20G/30ML UDC PO NR (12:30)
[2019-12-13] MEDS: ERGOCALCIFEROL 50000UNITS CAPSULE PO SCH (13:16)
[2019-12-13 20:00] VITALS: BP 131/50
[2019-12-13] MEDS: ATORVASTATIN CALCIUM 40MG TABLET PO SCH (21:30)
[2019-12-14] MEDS: IPRATROPIUM/ALBUTEROL 0.5-3(2.5)MG/3ML NEB HHN SCH ×4 (03:01→21:52)
[2019-12-14 07:15] VITALS: BP 143/60
[2019-12-14] MEDS: PANTOPRAZOLE SODIUM 40 MG/VIAL IV SCH (08:53)
[2019-12-14] MEDS: MAGNESIUM OXIDE 400MG TABLET PO SCH (08:53)
[2019-12-14] MEDS: FERROUS SULFATE 325MG TABLET PO SCH ×2 (08:53→16:13)
[2019-12-14] MEDS: LEVETIRACETAM 500MG TABLET PO SCH ×2 (08:54→22:19)
[2019-12-14] MEDS: AMLODIPINE 5MG TABLET PO SCH ×2 (08:54→22:19)
[2019-12-14] MEDS: GUAIFENESIN 600MG ER TABLET PO SCH ×2 (08:54→22:19)
[2019-12-14] MEDS: LOSARTAN POTASSIUM 50 MG TABLET PO SCH (08:54)
[2019-12-14 12:09] LABS: BASOPHILS % 1.1 % (0.0-2.0); EOSINOPHILS % 1.1 % (0.0-5.0); HEMATOCRIT. 37.7 % (36.0-48.0); HEMOGLOBIN. 12.7 g/dL (12.0-16.0); LYMPHOCYTES % 11.8 % (20.0-50.0); MEAN CORPUSCULAR HEMOGLOBIN 30.5 pg (28.0-32.0); MEAN CORPUSCULAR VOLUME 90.2 fL (81.0-99.0); MEAN PLATELET VOLUME 9.3 fl (7.4-10.4); MONOCYTES % 7.9 % (2.0-8.0); NEUTROPHILS % 78.1 % (40.0-76.0); PLATELET 278 x1000/uL (130-400); RED BLOOD CELL COUNT 4.18 mill/uL (4.2-5.4); RED CELL DISTRIBUTION WIDTH 15.4 % (11.6-14.6)
[2019-12-14] MEDS ORDERED: POTASSIUM CHLORIDE 20MEQ/PACKET PO NR (12:15)
[2019-12-14 12:42] LABS: CHLORIDE 109 mEq/L (98-107)
[2019-12-14 20:00] VITALS: BP 114/41
[2019-12-14] MEDS: ATORVASTATIN CALCIUM 40MG TABLET PO SCH (22:19)
[2019-12-15] MEDS: IPRATROPIUM/ALBUTEROL 0.5-3(2.5)MG/3ML NEB HHN SCH ×4 (02:10→21:09)
[2019-12-15] MEDS: ACETAMINOPHEN 325MG TABLET PO PRN (02:33)
[2019-12-15 06:41] LABS: BASOPHILS % 1.2 % (0.0-2.0); EOSINOPHILS % 2.1 % (0.0-5.0); HEMOGLOBIN. 11.2 g/dL (12.0-16.0); LYMPHOCYTES % 23.4 % (20.0-50.0); MEAN CORPUSCULAR HEMOGLOBIN 31.6 pg (28.0-32.0); MEAN CORPUSCULAR VOLUME 89.9 fL (81.0-99.0); MEAN PLATELET VOLUME 8.8 fl (7.4-10.4); MONOCYTES % 9.7 % (2.0-8.0); NEUTROPHILS % 63.6 % (40.0-76.0); PLATELET 231 x1000/uL (130-400); RED BLOOD CELL COUNT 3.56 mill/uL (4.2-5.4); RED CELL DISTRIBUTION WIDTH 15.6 % (11.6-14.6)
[2019-12-15 07:30] LABS: CHLORIDE 112 mEq/L (98-107)
[2019-12-15 08:00] VITALS: BP 108/57
[2019-12-15 08:07] VITALS: BP 108/57
[2019-12-15] MEDS: AMLODIPINE 5MG TABLET PO SCH ×2 (09:00→21:05)
[2019-12-15] MEDS: LOSARTAN POTASSIUM 50 MG TABLET PO SCH (09:00)
[2019-12-15] MEDS: LEVETIRACETAM 500MG TABLET PO SCH ×2 (09:30→21:04)
[2019-12-15] MEDS: FERROUS SULFATE 325MG TABLET PO SCH ×3 (09:30→16:43)
[2019-12-15] MEDS: PANTOPRAZOLE SODIUM 40 MG/VIAL IV SCH (09:30)
[2019-12-15] MEDS: MAGNESIUM OXIDE 400MG TABLET PO SCH (09:30)
[2019-12-15] MEDS: GUAIFENESIN 600MG ER TABLET PO SCH ×2 (09:30→21:04)
[2019-12-15 20:00] VITALS: BP 134/46
[2019-12-15] MEDS: ATORVASTATIN CALCIUM 40MG TABLET PO SCH (21:04)
[2019-12-15 23:15] LABS: CLARITY URINE CLEAR (CLEAR); COLOR URINE YELLOW (YELLOW); KETONES URINE NEGATIVE (NEGATIVE); LEUKOCYTE ESTERASE URINE 2+ (NEGATIVE); NITRITE URINE NEGATIVE (NEGATIVE); OCCULT BLOOD URINE 2+ (NEGATIVE); PH URINE 6.5 (4.5-8.0); PROTEIN URINE 1+ (NEGATIVE); SPECIFIC GRAVITY URINE 1.015 (1.005-1.030); UROBILINOGEN URINE 0.2 E.U./dL (0.2-1.0)
[2019-12-16] MEDS: IPRATROPIUM/ALBUTEROL 0.5-3(2.5)MG/3ML NEB HHN SCH ×4 (02:30→22:09)
[2019-12-16 06:11] LABS: CHLORIDE 111 mEq/L (98-107)
[2019-12-16 06:15] LABS: BASOPHILS % 1.3 % (0.0-2.0); EOSINOPHILS % 1.7 % (0.0-5.0); HEMATOCRIT. 32.5 % (36.0-48.0); MEAN CORPUSCULAR HEMOGLOBIN 30.6 pg (28.0-32.0); MEAN CORPUSCULAR VOLUME 90.1 fL (81.0-99.0); MONOCYTES % 10.2 % (2.0-8.0); NEUTROPHILS % 61.8 % (40.0-76.0); PLATELET 226 x1000/uL (130-400); RED BLOOD CELL COUNT 3.61 mill/uL (4.2-5.4)
[2019-12-16 06:20] LABS: PHOSPHORUS 2.4 mg/dL (2.5-4.9)
[2019-12-16 08:00] VITALS: BP 110/45
[2019-12-16] MEDS: MAGNESIUM OXIDE 400MG TABLET PO SCH (08:58)
[2019-12-16] MEDS: GUAIFENESIN 600MG ER TABLET PO SCH ×2 (08:58→21:38)
[2019-12-16] MEDS: FERROUS SULFATE 325MG TABLET PO SCH ×3 (08:58→16:16)
[2019-12-16] MEDS: LEVETIRACETAM 500MG TABLET PO SCH ×2 (08:58→21:38)
[2019-12-16] MEDS: AMLODIPINE 5MG TABLET PO SCH ×2 (08:59→21:00)
[2019-12-16] MEDS: PANTOPRAZOLE SODIUM 40 MG/VIAL IV SCH (08:59)
[2019-12-16] MEDS: LOSARTAN POTASSIUM 50 MG TABLET PO SCH (08:59)
[2019-12-16] MEDS ORDERED: POTASSIUM-SODIUM PHOSPHATE POWDER PACKET PO NR (15:00)
[2019-12-16 20:00] VITALS: BP 105/32
[2019-12-16] MEDS: ATORVASTATIN CALCIUM 40MG TABLET PO SCH (21:38)
[2019-12-17] MEDS: IPRATROPIUM/ALBUTEROL 0.5-3(2.5)MG/3ML NEB HHN SCH ×4 (02:05→19:59)
[2019-12-17 08:00] VITALS: BP 149/62
[2019-12-17] MEDS: LEVETIRACETAM 500MG TABLET PO SCH ×2 (09:09→21:11)
[2019-12-17] MEDS: LOSARTAN POTASSIUM 50 MG TABLET PO SCH (09:09)
[2019-12-17] MEDS: PANTOPRAZOLE SODIUM 40 MG/VIAL IV SCH (09:09)
[2019-12-17] MEDS: MAGNESIUM OXIDE 400MG TABLET PO SCH (09:09)
[2019-12-17] MEDS: GUAIFENESIN 600MG ER TABLET PO SCH ×2 (09:09→21:11)
[2019-12-17] MEDS: FERROUS SULFATE 325MG TABLET PO SCH ×3 (09:09→17:00)
[2019-12-17] MEDS: AMLODIPINE 5MG TABLET PO SCH ×2 (09:10→21:11)
[2019-12-17 20:00] VITALS: BP 130/50
[2019-12-17] MEDS: ATORVASTATIN CALCIUM 40MG TABLET PO SCH (21:11)
[2019-12-17] MEDS: AMPICILLIN SOD/SULBACTAM NA 1.5 G in SODIUM CHLORIDE 0.9% 50 ML IV SCH (21:17)
[2019-12-18] MEDS: IPRATROPIUM/ALBUTEROL 0.5-3(2.5)MG/3ML NEB HHN SCH ×4 (01:25→20:12)
[2019-12-18] MEDS: AMPICILLIN SOD/SULBACTAM NA 1.5 G in SODIUM CHLORIDE 0.9% 50 ML IV SCH ×4 (02:00→21:06)
[2019-12-18] MEDS: ACETAMINOPHEN 325MG TABLET PO PRN (03:38)
[2019-12-18 08:08] VITALS: BP 126/71
[2019-12-18] MEDS: PANTOPRAZOLE SODIUM 40 MG/VIAL IV SCH (08:49)
[2019-12-18] MEDS: AMLODIPINE 5MG TABLET PO SCH ×2 (08:50→21:12)
[2019-12-18] MEDS: LOSARTAN POTASSIUM 50 MG TABLET PO SCH (08:50)
[2019-12-18] MEDS: LEVETIRACETAM 500MG TABLET PO SCH ×2 (08:50→21:06)
[2019-12-18] MEDS: MAGNESIUM OXIDE 400MG TABLET PO SCH (08:50)
[2019-12-18] MEDS: GUAIFENESIN 600MG ER TABLET PO SCH ×2 (08:50→21:16)
[2019-12-18] MEDS: FERROUS SULFATE 325MG TABLET PO SCH ×3 (08:50→18:14)
[2019-12-18 15:55] LABS: BASOPHILS % 1.2 % (0.0-2.0); CHLORIDE 110 mEq/L (98-107); EOSINOPHILS % 2.3 % (0.0-5.0); HEMATOCRIT. 36.6 % (36.0-48.0); HEMOGLOBIN. 12.3 g/dL (12.0-16.0); LYMPHOCYTES % 19.4 % (20.0-50.0); MEAN CORPUSCULAR HEMOGLOBIN 30.5 pg (28.0-32.0); MEAN CORPUSCULAR VOLUME 90.8 fL (81.0-99.0); MEAN PLATELET VOLUME 8.9 fl (7.4-10.4); MONOCYTES % 9.5 % (2.0-8.0); NEUTROPHILS % 67.6 % (40.0-76.0); PLATELET 258 x1000/uL (130-400); RED BLOOD CELL COUNT 4.03 mill/uL (4.2-5.4); RED CELL DISTRIBUTION WIDTH 16.2 % (11.6-14.6)
[2019-12-18 20:00] VITALS: BP 113/52
[2019-12-18] MEDS: ATORVASTATIN CALCIUM 40MG TABLET PO SCH (21:06)
[2019-12-19] MEDS: IPRATROPIUM/ALBUTEROL 0.5-3(2.5)MG/3ML NEB HHN SCH ×4 (02:21→21:12)
[2019-12-19] MEDS: AMPICILLIN SOD/SULBACTAM NA 1.5 G in SODIUM CHLORIDE 0.9% 50 ML IV SCH ×4 (03:00→20:44)
[2019-12-19 06:48] LABS: BASOPHILS % 1.8 % (0.0-2.0); EOSINOPHILS % 3.6 % (0.0-5.0); HEMATOCRIT. 32.2 % (36.0-48.0); LYMPHOCYTES % 27.3 % (20.0-50.0); MEAN CORPUSCULAR HEMOGLOBIN 30.4 pg (28.0-32.0); MEAN CORPUSCULAR VOLUME 89.4 fL (81.0-99.0); MEAN PLATELET VOLUME 9.2 fl (7.4-10.4); MONOCYTES % 10.3 % (2.0-8.0); PLATELET 243 x1000/uL (130-400)
[2019-12-19 07:08] LABS: CHLORIDE 111 mEq/L (98-107)
[2019-12-19 08:00] VITALS: BP 97/69
[2019-12-19] MEDS: FERROUS SULFATE 325MG TABLET PO SCH ×3 (09:43→17:00)
[2019-12-19] MEDS: AMLODIPINE 5MG TABLET PO SCH ×2 (09:44→20:44)
[2019-12-19] MEDS: LOSARTAN POTASSIUM 50 MG TABLET PO SCH (09:44)
[2019-12-19] MEDS: GUAIFENESIN 600MG ER TABLET PO SCH ×2 (09:44→20:44)
[2019-12-19] MEDS: LEVETIRACETAM 500MG TABLET PO SCH ×2 (09:44→20:44)
[2019-12-19] MEDS: PANTOPRAZOLE SODIUM 40 MG/VIAL IV SCH (09:44)
[2019-12-19] MEDS: MAGNESIUM OXIDE 400MG TABLET PO SCH (09:44)
[2019-12-19 20:00] VITALS: BP 105/51
[2019-12-19] MEDS: ATORVASTATIN CALCIUM 40MG TABLET PO SCH (20:44)
[2019-12-19] MEDS: ACETAMINOPHEN 325MG TABLET PO PRN (22:42)
[2019-12-20] MEDS: GUAIFENESIN 200MG/10ML SUGAR FREE UDC PO PRN (01:00)
[2019-12-20] MEDS: AMPICILLIN SOD/SULBACTAM NA 1.5 G in SODIUM CHLORIDE 0.9% 50 ML IV SCH ×4 (01:18→20:16)
[2019-12-20] MEDS: IPRATROPIUM/ALBUTEROL 0.5-3(2.5)MG/3ML NEB HHN SCH ×4 (03:07→21:19)
[2019-12-20 06:56] LABS: EOSINOPHILS % 3.6 % (0.0-5.0); HEMATOCRIT. 30.1 % (36.0-48.0); HEMOGLOBIN. 10.2 g/dL (12.0-16.0); LYMPHOCYTES % 30.4 % (20.0-50.0); MEAN CORPUSCULAR HEMOGLOBIN 30.3 pg (28.0-32.0); MEAN CORPUSCULAR VOLUME 89.4 fL (81.0-99.0); MEAN PLATELET VOLUME 8.8 fl (7.4-10.4); MONOCYTES % 9.9 % (2.0-8.0); NEUTROPHILS % 54.1 % (40.0-76.0); PLATELET 214 x1000/uL (130-400); RED BLOOD CELL COUNT 3.37 mill/uL (4.2-5.4); RED CELL DISTRIBUTION WIDTH 16.2 % (11.6-14.6)
[2019-12-20 07:18] LABS: CHLORIDE 112 mEq/L (98-107)
[2019-12-20 08:19] VITALS: BP 121/58
[2019-12-20] MEDS: PANTOPRAZOLE SODIUM 40 MG/VIAL IV SCH (09:29)
[2019-12-20] MEDS: AMLODIPINE 5MG TABLET PO SCH ×2 (09:29→20:17)
[2019-12-20] MEDS: MAGNESIUM OXIDE 400MG TABLET PO SCH (09:29)
[2019-12-20] MEDS: FERROUS SULFATE 325MG TABLET PO SCH ×3 (09:30→16:45)
[2019-12-20] MEDS: LEVETIRACETAM 500MG TABLET PO SCH ×2 (09:30→20:17)
[2019-12-20] MEDS: GUAIFENESIN 600MG ER TABLET PO SCH ×2 (09:30→20:16)
[2019-12-20] MEDS: LOSARTAN POTASSIUM 50 MG TABLET PO SCH (09:30)
[2019-12-20] MEDS ORDERED: TRAMADOL 50MG TABLET PO PRN (10:15)
[2019-12-20] MEDS ORDERED: LACTULOSE 20G/30ML UDC PO PRN (10:15)
[2019-12-20] MEDS: ERGOCALCIFEROL 50000UNITS CAPSULE PO SCH (15:32)
[2019-12-20 20:00] VITALS: BP 141/43
[2019-12-20] MEDS: ATORVASTATIN CALCIUM 40MG TABLET PO SCH (20:16)
[2019-12-20] MEDS ORDERED: ZOLPIDEM TARTRATE 5MG TABLET PO PRN (21:00)
[2019-12-21] MEDS: AMPICILLIN SOD/SULBACTAM NA 1.5 G in SODIUM CHLORIDE 0.9% 50 ML IV SCH ×4 (01:34→20:52)
[2019-12-21] MEDS: IPRATROPIUM/ALBUTEROL 0.5-3(2.5)MG/3ML NEB HHN SCH ×4 (01:38→21:05)
[2019-12-21 08:03] VITALS: BP 124/52
[2019-12-21 08:06] LABS: BASOPHILS % 1.3 % (0.0-2.0); EOSINOPHILS % 3.1 % (0.0-5.0); HEMATOCRIT. 32.8 % (36.0-48.0); LYMPHOCYTES % 20.6 % (20.0-50.0); MEAN CORPUSCULAR HEMOGLOBIN 30.5 pg (28.0-32.0); MEAN CORPUSCULAR VOLUME 90.9 fL (81.0-99.0); MEAN PLATELET VOLUME 8.8 fl (7.4-10.4); MONOCYTES % 8.8 % (2.0-8.0); NEUTROPHILS % 66.2 % (40.0-76.0); PLATELET 225 x1000/uL (130-400); RED BLOOD CELL COUNT 3.61 mill/uL (4.2-5.4); RED CELL DISTRIBUTION WIDTH 16.5 % (11.6-14.6)
[2019-12-21 08:30] LABS: CHLORIDE 112 mEq/L (98-107)
[2019-12-21] MEDS: AMLODIPINE 5MG TABLET PO SCH ×2 (08:52→20:45)
[2019-12-21] MEDS: LOSARTAN POTASSIUM 50 MG TABLET PO SCH (08:52)
[2019-12-21] MEDS: GUAIFENESIN 600MG ER TABLET PO SCH ×2 (08:52→20:52)
[2019-12-21] MEDS: PANTOPRAZOLE SODIUM 40 MG/VIAL IV SCH (08:52)
[2019-12-21] MEDS: MAGNESIUM OXIDE 400MG TABLET PO SCH (08:53)
[2019-12-21] MEDS: FERROUS SULFATE 325MG TABLET PO SCH ×3 (08:53→16:46)
[2019-12-21] MEDS: LEVETIRACETAM 500MG TABLET PO SCH ×2 (08:53→20:52)
[2019-12-21 20:00] VITALS: BP 105/47
[2019-12-21] MEDS: ATORVASTATIN CALCIUM 40MG TABLET PO SCH (20:52)
[2019-12-22] MEDS: AMPICILLIN SOD/SULBACTAM NA 1.5 G in SODIUM CHLORIDE 0.9% 50 ML IV SCH ×4 (01:14→22:25)
[2019-12-22] MEDS: IPRATROPIUM/ALBUTEROL 0.5-3(2.5)MG/3ML NEB HHN SCH ×4 (01:53→21:13)
[2019-12-22] MEDS: ACETAMINOPHEN 325MG TABLET PO PRN (03:05)
[2019-12-22 07:49] VITALS: BP 118/66
[2019-12-22] MEDS: PANTOPRAZOLE SODIUM 40 MG/VIAL IV SCH (08:57)
[2019-12-22] MEDS: AMLODIPINE 5MG TABLET PO SCH ×2 (08:57→22:26)
[2019-12-22] MEDS: MAGNESIUM OXIDE 400MG TABLET PO SCH (08:57)
[2019-12-22] MEDS: FERROUS SULFATE 325MG TABLET PO SCH ×3 (08:57→16:45)
[2019-12-22] MEDS: LEVETIRACETAM 500MG TABLET PO SCH ×2 (08:58→22:25)
[2019-12-22] MEDS: LOSARTAN POTASSIUM 50 MG TABLET PO SCH (08:58)
[2019-12-22] MEDS: GUAIFENESIN 600MG ER TABLET PO SCH ×2 (08:58→22:25)
[2019-12-22 09:55] LABS: BASOPHILS % 1.7 % (0.0-2.0); EOSINOPHILS % 6.4 % (0.0-5.0); HEMATOCRIT. 34.1 % (36.0-48.0); HEMOGLOBIN. 11.5 g/dL (12.0-16.0); MEAN CORPUSCULAR HEMOGLOBIN 30.8 pg (28.0-32.0); MEAN CORPUSCULAR VOLUME 91.3 fL (81.0-99.0); MEAN PLATELET VOLUME 9.2 fl (7.4-10.4); MONOCYTES % 7.1 % (2.0-8.0); NEUTROPHILS % 56.8 % (40.0-76.0); PLATELET 224 x1000/uL (130-400); RED BLOOD CELL COUNT 3.73 mill/uL (4.2-5.4); RED CELL DISTRIBUTION WIDTH 16.5 % (11.6-14.6)
[2019-12-22 10:02] LABS: CHLORIDE 110 mEq/L (98-107)
[2019-12-22] MEDS ORDERED: FERR325T23 PO (11:57)
[2019-12-22] MEDS ORDERED: TOPUD PO (11:57)
[2019-12-22] MEDS ORDERED: DOCU-150 PO (11:57)
[2019-12-22] MEDS ORDERED: LOSA50TA3 PO (11:57)
[2019-12-22] MEDS ORDERED: KEPP500 PO (11:57)
[2019-12-22] MEDS ORDERED: LIP40 PO (11:57)
[2019-12-22] MEDS ORDERED: AMLO5TAB88 PO (11:57)
[2019-12-22] MEDS ORDERED: MYL30 PO (11:57)
[2019-12-22] MEDS ORDERED: GUAI600T44 PO (11:57)
[2019-12-22] MEDS ORDERED: MAGN400C MT (11:57)
[2019-12-22] MEDS ORDERED: LACT10SO7 PO (11:57)
[2019-12-22 20:00] VITALS: BP 128/56
[2019-12-22] MEDS: ATORVASTATIN CALCIUM 40MG TABLET PO SCH (22:25)
[2019-12-23] MEDS: ACETAMINOPHEN 325MG TABLET PO PRN (00:37)
[2019-12-23] MEDS: IPRATROPIUM/ALBUTEROL 0.5-3(2.5)MG/3ML NEB HHN SCH ×3 (01:15→14:40)
[2019-12-23 08:00] VITALS: BP 118/66
[2019-12-23] MEDS: PANTOPRAZOLE SODIUM 40 MG/VIAL IV SCH ×2 (09:00→09:24)
[2019-12-23] MEDS: LOSARTAN POTASSIUM 50 MG TABLET PO SCH (09:23)
[2019-12-23] MEDS: AMLODIPINE 5MG TABLET PO SCH (09:23)
[2019-12-23] MEDS: GUAIFENESIN 600MG ER TABLET PO SCH (09:23)
[2019-12-23] MEDS: LEVETIRACETAM 500MG TABLET PO SCH (09:23)
[2019-12-23] MEDS: MAGNESIUM OXIDE 400MG TABLET PO SCH (09:23)
[2019-12-23] MEDS: FERROUS SULFATE 325MG TABLET PO SCH ×2 (09:23→13:00)
[2019-12-23 10:48] VITALS: BP 118/66
[2019-12-23 12:07] LABS: BASOPHILS % 2.2 % (0.0-2.0); EOSINOPHILS % 5.8 % (0.0-5.0); HEMOGLOBIN. 10.7 g/dL (12.0-16.0); LYMPHOCYTES % 28.5 % (20.0-50.0); MEAN CORPUSCULAR HEMOGLOBIN 30.4 pg (28.0-32.0); MEAN CORPUSCULAR VOLUME 91.1 fL (81.0-99.0); MEAN PLATELET VOLUME 9.1 fl (7.4-10.4); MONOCYTES % 8.7 % (2.0-8.0); NEUTROPHILS % 54.8 % (40.0-76.0); PLATELET 179 x1000/uL (130-400); RED BLOOD CELL COUNT 3.51 mill/uL (4.2-5.4); RED CELL DISTRIBUTION WIDTH 16.8 % (11.6-14.6)
[2019-12-23 12:26] LABS: CHLORIDE 110 mEq/L (98-107)
== END 2019-12-23 15:11 | disposition home health service (06) | DRG 82 ==
PROVIDERS: ADMIT Physical Medicine & Rehabilitation Spinal Cord Injury Medicine; ATTEND Family Medicine Adult Medicine
DX: S06.5X9A Traumatic subdural hemorrhage with loss of consciousness of unspecified duration, initial encounter (principal); J96.01 Acute respiratory failure with hypoxia; J69.0 Pneumonitis due to inhalation of food and vomit; G82.50 Quadriplegia, unspecified; A41.81 Sepsis due to Enterococcus; E87.1 Hypo-osmolality and hyponatremia; D62 Acute posthemorrhagic anemia; D68.9 Coagulation defect, unspecified; J98.11 Atelectasis; G96.0 Cerebrospinal fluid leak; G81.94 Hemiplegia, unspecified affecting left nondominant side; E46 Unspecified protein-calorie malnutrition; Z68.1 Body mass index [BMI] 19.9 or less, adult; Z99.11 Dependence on respirator [ventilator] status; G93.40 Encephalopathy, unspecified; N39.0 Urinary tract infection, site not specified; Z16.21 Resistance to vancomycin; E87.6 Hypokalemia; D69.6 Thrombocytopenia, unspecified; E83.42 Hypomagnesemia; R13.10 Dysphagia, unspecified; E78.5 Hyperlipidemia, unspecified; I10 Essential (primary) hypertension; J44.9 Chronic obstructive pulmonary disease, unspecified; G89.29 Other chronic pain; R00.0 Tachycardia, unspecified; M48.02 Spinal stenosis, cervical region; E78.00 Pure hypercholesterolemia, unspecified; E87.70 Fluid overload, unspecified; F80.9 Developmental disorder of speech and language, unspecified; I44.0 Atrioventricular block, first degree; M50.223 Other cervical disc displacement at C6-C7 level; W18.39XA Other fall on same level, initial encounter; Y93.89 Activity, other specified; Y92.89 Other specified places as the place of occurrence of the external cause; Y99.8 Other external cause status; Z86.73 Personal history of transient ischemic attack (TIA), and cerebral infarction without residual deficits; R53.81 Other malaise; M54.5 Low back pain; D50.9 Iron deficiency anemia, unspecified; F01.50 Vascular dementia, unspecified severity, without behavioral disturbance, psychotic disturbance, mood disturbance, and anxiety; I35.8 Other nonrheumatic aortic valve disorders; I70.0 Atherosclerosis of aorta; R29.6 Repeated falls
CPT/HCPCS: 36415; 71045; 74230; 80048; 80053; 81003; 82140; 82306; 82607; 82728; 82746; 83540; 83550; 83735; 84100; 84134; 84443; 85025; 87077; 87186; 92523; 92611; 93970; 94640; 97110; 97112; 97116; 97162; 97167; 97530; 97535; C9113; J0295; J1953; J3475; J3480; J7060